=== PATIENT | male | born 1995 | race American Indian/Alaskan Native ===

== ENCOUNTER 2021-10-15 12:06 | Emergency (ER) | payer OTHER ==
[~2021-10-15] VITALS: Ht 175.3 cm; Wt 95.2 kg
[2021-10-15] MEDS ORDERED: Robaxin750 MG PO (14:26)
[2021-10-15] MEDS ORDERED: IBUP800 PO (14:26)
== END 2021-10-15 14:39 | disposition home or self-care (01) ==
LOC: ER 12:06
DX: M25.552 Pain in left hip (principal); M54.50 Low back pain, unspecified; W19.XXXA Unspecified fall, initial encounter
CPT/HCPCS: 72100; 73502; J1885